=== PATIENT | female | born 1960 | race Caucasian/White ===

== ENCOUNTER 2016-06-08 17:28 | Emergency (ER) | payer OTHER ==
[2016-06-08 18:22] LABS: BASOPHIL 0.3 % (0-2); EOSINOPHIL 0 % (0-5); HCT 41.2 % (37.0-47.0); HGB 13.5 g/dl (12.5-16.0); LYMPHOCYTE 10.7 % (15-48); MCH 28.5 pg (25.0-31.0); MCHC 32.8 g/dL (32.0-36.0); MCV 87.1 fL (78.0-100.0); MPV 10.9 fL (6.0-9.5); PLT 172 K/uL (150-400); RBC 4.73 M/uL (4.20-5.40); RDW 14.8 % (11.5-14.0)
[2016-06-08 21:12] LABS: BILIRUBIN NEGATIVE (NEGATIVE); BLOOD 1+ Ery/uL (NEGATIVE); CLARITY HAZY (CLEAR); COLOR YELLOW (YELLOW); GLUCOSE (U) NORMAL (NORMAL); KETONE (U) NEGATIVE (NEGATIVE); LEUKOCYTES NEGATIVE Leu/uL (NEGATIVE); NITRITE NEGATIVE (NEGATIVE); PROTEIN TRACE (LOW) mg/dL (NEGATIVE); SPECIFIC GRAVITY >=1.030 (1.001-1.030); pH 5.5 (5.0-9.0)
[2016-06-08 21:18] LABS: BACTERIA TRACE
== END 2016-06-08 21:49 | disposition home or self-care (01) ==
LOC: FER 17:28
PROVIDERS: Emergency Medicine; Nurse Practitioner Family
DX: J06.9 Acute upper respiratory infection, unspecified (principal); J45.909 Unspecified asthma, uncomplicated; J44.9 Chronic obstructive pulmonary disease, unspecified; I10 Essential (primary) hypertension; E03.9 Hypothyroidism, unspecified; F17.210 Nicotine dependence, cigarettes, uncomplicated
CPT/HCPCS: 36415; 71020; 81001; 85025; 87804; 87899; 99283

== ENCOUNTER → 2016-09-13 | Day surgery (SDC) | payer OTHER ==
[~2016-09-13] VITALS: Ht 172.7 cm; Wt 100.0 kg
[2016-09-13 12:07] LABS: ALBUMIN 3.9 g/dL (3.5-5.0); BILIRUBIN - TOTAL 0.8 mg/dL (0.1-1.0); CREATININE 0.6 mg/dL (0.5-1.0); GLOBULIN (CALCULATION) 2.8 g/dL (2.2-4.2); POTASSIUM 4.5 mmol/L (3.5-5.1); TOTAL PROTEIN 6.7 g/dL (6.4-8.3)
[2016-09-13 12:08] LABS: HCT 43.8 % (37.0-47.0); HGB 14.5 g/dl (12.5-16.0); WBC 7.1 K/uL (4.0-10.5)
[2016-09-13 12:09] LABS: MCH 28.4 pg (25.0-31.0); MCHC 33.1 g/dL (32.0-36.0); MCV 85.9 fL (78.0-100.0); PLT 215 K/uL (150-400)
== END | disposition home or self-care (01) ==
LOC: FAS 10:29
PROVIDERS: Surgery
DX: K29.50 Unspecified chronic gastritis without bleeding (principal); K21.0 Gastro-esophageal reflux disease with esophagitis; I10 Essential (primary) hypertension; E03.8 Other specified hypothyroidism; G47.30 Sleep apnea, unspecified; J44.9 Chronic obstructive pulmonary disease, unspecified; J45.909 Unspecified asthma, uncomplicated; F32.9 Major depressive disorder, single episode, unspecified; F41.9 Anxiety disorder, unspecified; G89.4 Chronic pain syndrome; M51.36 Other intervertebral disc degeneration, lumbar region; M19.90 Unspecified osteoarthritis, unspecified site; Z98.51 Tubal ligation status; Z87.442 Personal history of urinary calculi; Z87.891 Personal history of nicotine dependence; Z88.5 Allergy status to narcotic agent; Z90.89 Acquired absence of other organs; Z90.710 Acquired absence of both cervix and uterus; Z83.2 Family history of diseases of the blood and blood-forming organs and certain disorders involving the immune mechanism; Z82.3 Family history of stroke; Z82.62 Family history of osteoporosis; Z83.3 Family history of diabetes mellitus; Z81.1 Family history of alcohol abuse and dependence; Z79.899 Other long term (current) drug therapy; Z98.890 Other specified postprocedural states
CPT/HCPCS: 36415; 80053; 88305; 88312; J2704

== ENCOUNTER 2020-08-29 11:37 | Emergency (ER) | payer OTHER ==
[~2020-08-29 11:37] MED LIST: ASPIRIN CHEWABL81 MG PO; BREO ELLIPTA 11 EACH INH; LEVAQUIN750 MG PO; LEXAPRO 10MG TA10 MG PO; LOSARTAN-HCTZ1 EAC1 PO; MEDROL 4MG DOSEP4 MG PO; MOBIC7.5 MG PO; NEURONTIN100 MG PO; NITROQUIK SL0.4 MG SL; NORVASC2.5 MG PO; PREDNISONE20 MG PO; PRILOSEC20 MG PO; SYNTHROID100 MCG PO; VENTOLIN (2.5 MG/3 M INH; VENTOLIN HFA IN18 GM INH; VITAMIN D400 UNIT PO
[2020-08-29 12:21] LABS: BASOPHIL 0.8 % (0-2); EOSINOPHIL 1.7 % (0-5); HCT 47.5 % (37.0-47.0); HGB 15.8 g/dl (12.5-16.0); LYMPHOCYTE 21.6 % (15-48); MCH 29.5 pg (25.0-31.0); MCHC 33.3 g/dL (32.0-36.0); MCV 88.6 fL (78.0-100.0); MONOCYTE 7.3 % (0-12); MPV 10.8 fL (6.0-9.5); NEUTROPHIL 68.2 % (41-80); NRBC 0; PLT 272 K/uL (150-400); RBC 5.36 M/uL (4.20-5.40); RDW 13.8 % (11.5-14.0); WBC 11.6 K/uL (4.0-10.5)
[2020-08-29 12:22] LABS: BILIRUBIN NEGATIVE (NEGATIVE); BLOOD NEGATIVE Ery/uL (NEGATIVE); CLARITY CLEAR (CLEAR); COLOR YELLOW (YELLOW); GLUCOSE (U) NORMAL (NORMAL); LEUKOCYTES NEGATIVE Leu/uL (NEGATIVE); NITRITE NEGATIVE (NEGATIVE); PROTEIN NEGATIVE (NEGATIVE); SPECIFIC GRAVITY 1.025 (1.001-1.030)
[2020-08-29 12:47] LABS: BUN/CREAT RATIO (CALC) 18.3 RATIO; CREATININE 0.82 mg/dL (0.51-0.95); POTASSIUM 4.2 mmol/L (3.5-5.1)
[2020-08-29] MEDS ORDERED: CIPRO500 MG PO (13:19)
[2020-08-29] MEDS ORDERED: METRONIDAZOLE500 MG PO (13:19)
== END 2020-08-29 13:33 | disposition home or self-care (01) ==
LOC: FER 11:37
PROVIDERS: Emergency Medicine
DX: K57.32 Diverticulitis of large intestine without perforation or abscess without bleeding (principal); I10 Essential (primary) hypertension; F17.210 Nicotine dependence, cigarettes, uncomplicated; Z88.0 Allergy status to penicillin; Z88.5 Allergy status to narcotic agent; Z88.8 Allergy status to other drugs, medicaments and biological substances
CPT/HCPCS: 36415; 80048; 81003; 85025; J1885; J2405

== ENCOUNTER → 2020-11-08 | Day surgery (SDC) | payer OTHER ==
[~2020-11-08] VITALS: Ht 172.7 cm; Wt 102.5 kg
[~2020-11-08] MED LIST changes: +ALBUTEROL0.63 MG/3 INH; +ASPIRIN EC81 MG PO; +BENICAR40 MG PO; +BENTYL10 MG PO; +CIPRO500 MG PO; +DICLO GEL1 EACH TOP; +ELAVIL25 MG PO; +LEVAQUIN500 MG PO; +METFORMIN HCL500 MG PO; +METRONIDAZOLE500 MG PO; +NEOMYCIN-POLYMY10 ML EARLF; +PERCOCET 7.5/321 TAB PO; +PHENERGAN6.25 MG/5 PO; +ZOFRAN4 M1 PO
[2020-11-08 08:02] LABS: HCT 48.1 % (37.0-47.0); HGB 15.5 g/dl (12.5-16.0); MCH 28.5 pg (25.0-31.0); MCHC 32.2 g/dL (32.0-36.0); MCV 88.4 fL (78.0-100.0); MPV 10.9 fL (6.0-9.5); RBC 5.44 M/uL (4.20-5.40); RDW 13.9 % (11.5-14.0); WBC 9.8 K/uL (4.0-10.5)
[2020-11-08 08:13] LABS: ALBUMIN 3.7 g/dL (3.4-5.0); BILIRUBIN - TOTAL 0.5 mg/dL (0.2-1.0); BUN/CREAT RATIO (CALC) 19.3 RATIO; CREATININE 0.83 mg/dL (0.51-0.95); GLOBULIN (CALCULATION) 3.8 g/dL; TOTAL PROTEIN 7.5 g/dL (6.4-8.2)
--- NOTE | 2020-11-08 10:29 | NUR ---
11/08/20 0900- S KEIKO PERAZA AT BEDSIDE TALKING WITH PT. CASE CANCELLED. IV DC'D WITH TIP INTACT. PT TO FOLLOW UP WITH PCP
== END | disposition home or self-care (01) ==
LOC: FAS 06:54
PROVIDERS: Surgery
DX: K81.9 Cholecystitis, unspecified (principal); I10 Essential (primary) hypertension; J44.9 Chronic obstructive pulmonary disease, unspecified; G47.33 Obstructive sleep apnea (adult) (pediatric); G89.4 Chronic pain syndrome; M19.90 Unspecified osteoarthritis, unspecified site; F17.200 Nicotine dependence, unspecified, uncomplicated; Z53.8 Procedure and treatment not carried out for other reasons; Z79.84 Long term (current) use of oral hypoglycemic drugs; Z79.899 Other long term (current) drug therapy; Z88.8 Allergy status to other drugs, medicaments and biological substances; Z86.010 Personal history of colon polyps
CPT/HCPCS: 36415; 71045; 80053; J2250; J7120; Q9967

== ENCOUNTER 2020-11-14 09:20 | Day surgery (SDCO) | payer OTHER ==
[~2020-11-14] VITALS: Ht 172.7 cm; Wt 103.2 kg
[~2020-11-14 09:20] MED LIST changes: -ALBUTEROL0.63 MG/3 INH; -ASPIRIN EC81 MG PO; -BENICAR40 MG PO; -BENTYL10 MG PO; -DICLO GEL1 EACH TOP; -ELAVIL25 MG PO; -LEVAQUIN500 MG PO; -METFORMIN HCL500 MG PO; -NEOMYCIN-POLYMY10 ML EARLF; -PHENERGAN6.25 MG/5 PO
[2020-11-14 10:30] LABS: BASOPHIL 0.5 % (0-2); EOSINOPHIL 1.1 % (0-5); HCT 47.8 % (37.0-47.0); HGB 15.6 g/dl (12.5-16.0); LYMPHOCYTE 13.2 % (15-48); MCH 28.9 pg (25.0-31.0); MCHC 32.6 g/dL (32.0-36.0); MCV 88.7 fL (78.0-100.0); MONOCYTE 5.7 % (0-12); MPV 10.5 fL (6.0-9.5); NEUTROPHIL 79.2 % (41-80); NRBC 0; PLT 250 K/uL (150-400); RBC 5.39 M/uL (4.20-5.40); RDW 13.7 % (11.5-14.0); WBC 12.5 K/uL (4.0-10.5)
[2020-11-14 10:48] LABS: INR 1.08 (0.9-1.2); PROTHROMBIN TIME 13.4 SECONDS (11.8-13.4); PTT 30.3 SECONDS (24.4-34.7)
[2020-11-14 11:02] LABS: ALBUMIN 3.5 g/dL (3.4-5.0); BILIRUBIN - TOTAL 1.2 mg/dL (0.2-1.0); BUN/CREAT RATIO (CALC) 22.6 RATIO; CREATININE 0.84 mg/dL (0.51-0.95); GLOBULIN (CALCULATION) 3.4 g/dL; POTASSIUM 4.3 mmol/L (3.5-5.1); TOTAL PROTEIN 6.9 g/dL (6.4-8.2)
[2020-11-14 11:08] LABS: CKMB 0.5 ng/mL (0.0-3.6)
[2020-11-14 14:27] LABS: PRO-BNP 38 pg/mL (<125)
[2020-11-14] MEDS ORDERED: BENICAR40 MG PO (15:25)
[2020-11-14] MEDS ORDERED: ELAVIL25 MG PO (15:28)
[2020-11-14] MEDS ORDERED: METFORMIN HCL500 MG PO (15:30)
[2020-11-14] MEDS ORDERED: LEVAQUIN500 MG PO (15:34)
[2020-11-14] MEDS ORDERED: NEOMYCIN-POLYMY10 ML EARLF (15:34)
[2020-11-14] MEDS ORDERED: PHENERGAN6.25 MG/5 PO (15:35)
[2020-11-14] MEDS ORDERED: ALBUTEROL0.63 MG/3 INH (15:36)
[2020-11-14] MEDS ORDERED: BENTYL10 MG PO (15:37)
[2020-11-14] MEDS ORDERED: PRILOSEC20 MG PO (15:37)
[2020-11-14] MEDS ORDERED: DICLO GEL1 EACH TOP (15:39)
[2020-11-15 06:25] LABS: BASOPHIL 0.8 % (0-2); EOSINOPHIL 1.6 % (0-5); HCT 46.7 % (37.0-47.0); HGB 14.9 g/dl (12.5-16.0); LYMPHOCYTE 25.3 % (15-48); MCH 28.7 pg (25.0-31.0); MCHC 31.9 g/dL (32.0-36.0); MPV 11.1 fL (6.0-9.5); NEUTROPHIL 63.7 % (41-80); NRBC 0; PLT 241 K/uL (150-400); RBC 5.19 M/uL (4.20-5.40); RDW 13.6 % (11.5-14.0); WBC 9.8 K/uL (4.0-10.5)
[2020-11-15 06:39] LABS: BUN/CREAT RATIO (CALC) 20.6 RATIO; CREATININE 0.97 mg/dL (0.51-0.95); POTASSIUM 4.1 mmol/L (3.5-5.1)
[2020-11-15] MEDS ORDERED: ASPIRIN EC81 MG PO (09:03)
== END 2020-11-15 10:15 | disposition home or self-care (01) ==
LOC: FER 09:20 → FTCU 11:23
PROVIDERS: Emergency Medicine; ADMIT Allergy & Immunology Allergy
DX: R07.89 Other chest pain (principal); E11.9 Type 2 diabetes mellitus without complications; I10 Essential (primary) hypertension; J44.9 Chronic obstructive pulmonary disease, unspecified; G89.29 Other chronic pain; M54.5 Low back pain; G47.33 Obstructive sleep apnea (adult) (pediatric); I07.1 Rheumatic tricuspid insufficiency; E89.0 Postprocedural hypothyroidism; Z82.49 Family history of ischemic heart disease and other diseases of the circulatory system; Z87.891 Personal history of nicotine dependence; Z79.1 Long term (current) use of non-steroidal anti-inflammatories (NSAID); Z79.2 Long term (current) use of antibiotics; Z79.84 Long term (current) use of oral hypoglycemic drugs; Z79.899 Other long term (current) drug therapy; Z88.6 Allergy status to analgesic agent; Z20.822 Contact with and (suspected) exposure to COVID-19
CPT/HCPCS: 36415; 71046; 80048; 80053; 80061; 82553; 83036; 83880; 84484; 85025; 85610; 85730; 93005; 94640; G0378; J1650; U0002

== ENCOUNTER 2021-06-18 07:52 | Emergency (ER) | payer OTHER ==
[~2021-06-18 07:52] MED LIST changes: +ALBUTEROL0.63 MG/3 INH; +ASPIRIN EC81 MG PO; +BENICAR40 MG PO; +BENTYL10 MG PO; +DICLO GEL1 EACH TOP; +ELAVIL25 MG PO; +LEVAQUIN500 MG PO; +METFORMIN HCL500 MG PO; +NEOMYCIN-POLYMY10 ML EARLF; +PHENERGAN6.25 MG/5 PO
[2021-06-18 09:15] LABS: BASOPHIL 0.6 % (0-2); EOSINOPHIL 0.6 % (0-5); HCT 43.6 % (37.0-47.0); HGB 13.9 g/dl (12.5-16.0); LYMPHOCYTE 16.6 % (15-48); MCH 28.7 pg (25.0-31.0); MCHC 31.9 g/dL (32.0-36.0); MCV 89.9 fL (78.0-100.0); MONOCYTE 5.9 % (0-12); MPV 10.4 fL (6.0-9.5); NEUTROPHIL 75.8 % (41-80); NRBC 0; PLT 290 K/uL (150-400); RBC 4.85 M/uL (4.20-5.40); RDW 13.7 % (11.5-14.0); WBC 11.3 K/uL (4.0-10.5)
[2021-06-18 09:34] LABS: ALBUMIN 3.4 g/dL (3.4-5.0); BILIRUBIN - TOTAL 0.8 mg/dL (0.2-1.0); BUN/CREAT RATIO (CALC) 17.1 RATIO; C-REACTIVE PROTEIN 1.7 mg/dL (<=0.90); CREATININE 0.82 mg/dL (0.51-0.95); TOTAL PROTEIN 7.4 g/dL (6.4-8.2)
[2021-06-18] MEDS ORDERED: ROBAXIN750 MG PO (12:21)
[2021-06-18] MEDS ORDERED: MEDROL 4MG DOSEP4 MG PO (12:21)
== END 2021-06-18 12:36 | disposition home or self-care (01) ==
LOC: FER 07:52
PROVIDERS: Emergency Medicine
DX: M54.16 Radiculopathy, lumbar region (principal); J44.9 Chronic obstructive pulmonary disease, unspecified; F17.200 Nicotine dependence, unspecified, uncomplicated; Z88.5 Allergy status to narcotic agent
CPT/HCPCS: 36415; 72131; 72192; 80053; 85025; 86140; 93922; 93971; J1100; J1170; J2405

== ENCOUNTER 2021-08-22 12:56 | Emergency (ER) | payer OTHER ==
[~2021-08-22 12:56] MED LIST changes: +IBUPROFEN800 MG PO; +ROBAXIN750 MG PO
[2021-08-22 13:43] LABS: BASOPHIL 0.4 % (0-2); EOSINOPHIL 0.2 % (0-5); HCT 44.6 % (37.0-47.0); HGB 14.4 g/dl (12.5-16.0); MCH 28.4 pg (25.0-31.0); MCHC 32.3 g/dL (32.0-36.0); MONOCYTE 7.5 % (0-12); MPV 10.6 fL (6.0-9.5); NEUTROPHIL 82.3 % (41-80); NRBC 0; PLT 285 K/uL (150-400); RBC 5.07 M/uL (4.20-5.40); RDW 13.1 % (11.5-14.0); WBC 10.8 K/uL (4.0-10.5)
[2021-08-22 14:15] LABS: ALBUMIN 3.6 g/dL (3.4-5.0); BILIRUBIN - TOTAL 0.7 mg/dL (0.2-1.0); BUN/CREAT RATIO (CALC) 20.2 RATIO; CREATININE 0.84 mg/dL (0.51-0.95); GLOBULIN (CALCULATION) 4.2 g/dL; POTASSIUM 3.8 mmol/L (3.5-5.1); TOTAL PROTEIN 7.8 g/dL (6.4-8.2)
[2021-08-22 15:25] LABS: BILIRUBIN NEGATIVE (NEGATIVE); BLOOD NEGATIVE Ery/uL (NEGATIVE); CLARITY CLEAR (CLEAR); COLOR YELLOW (YELLOW); GLUCOSE (U) NORMAL (NORMAL); LEUKOCYTES NEGATIVE Leu/uL (NEGATIVE); NITRITE NEGATIVE (NEGATIVE); PROTEIN NEGATIVE (NEGATIVE); SPECIFIC GRAVITY <=1.005 (1.001-1.030); UROBILINOGEN 0.2 mg/dL (0.2-1.0)
[2021-08-22] MEDS ORDERED: PREDNISONE 20MG20 MG PO (16:32)
[2021-08-22] MEDS ORDERED: AZITHROMYCIN250 MG PO (16:32)
== END 2021-08-22 16:49 | disposition home or self-care (01) ==
LOC: FER 12:56
PROVIDERS: Emergency Medicine
DX: J44.1 Chronic obstructive pulmonary disease with (acute) exacerbation (principal); I10 Essential (primary) hypertension; Z20.822 Contact with and (suspected) exposure to COVID-19; Z88.5 Allergy status to narcotic agent; Z87.891 Personal history of nicotine dependence
CPT/HCPCS: 36415; 36600; 71046; 80053; 81003; 82553; 82803; 84443; 84484; 85025; 87040; 93005; J2930; U0002

== ENCOUNTER 2021-10-29 11:48 | Emergency (ER) | payer OTHER ==
[~2021-10-29 11:48] MED LIST changes: +AZITHROMYCIN250 MG PO; +PREDNISONE 20MG20 MG PO
== END 2021-10-29 14:36 | disposition left against medical advice (07) ==
LOC: FER 11:48
DX: M25.561 Pain in right knee (principal); I10 Essential (primary) hypertension; J44.9 Chronic obstructive pulmonary disease, unspecified; Z88.5 Allergy status to narcotic agent; Z53.29 Procedure and treatment not carried out because of patient's decision for other reasons
CPT/HCPCS: 73564